=== PATIENT | male | born 1940 | race African-American/Black ===

== ENCOUNTER 2016-11-28 17:33 | Emergency (ER) | payer OTHER ==
[~2016-11-28] VITALS: Ht 175.3 cm; Wt 81.6 kg
--- NOTE | 2016-11-28 18:20 | Emergency Room Report ---
History of Present Illness General Chief Complaint: Generalized Weakness Source: Patient, EMS Present Illness HPI The patient states that he has a long history of syncope. He states that previously this was secondary to dehydration. He states he does now all hydrate very carefully. He presents today because he had been at a meeting and he was standing after the meeting for quite a long time having a conversation and he became lightheaded. He sat down in his car and still continued to be lightheaded. He denies chest pain or shortness of breath. Denies abdominal pain. He denies fever or chills. He did not have loss of consciousness. He has no other complaints. 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 He is on xeralto. He states that he had been on Coumadin until a few months ago and he was changed to xeralto. Allergies: Coded Allergies: No Known Allergies (Unverified , 11/28/16) Patient History Past Medical History: see triage record, HTN, other - syncope, dehydration/low blood pressure. Prostate CA. Hx of PE. Social History: Denies: alcohol use, drug use, smoking Reviewed Nursing Documentation: PMH: Agreed, PSxH: Agreed Nursing Documentation-PMH Past Medical History: No History, Except For Hx Hypertension: Yes Hx Cerebrovascular Accident: Yes Review of Systems All Other Systems: negative except mentioned in HPI Physical Exam Vital Signs Date Time Temp Pulse Resp B/P Pulse Ox O2 Delivery O2 Flow Rate FiO2 11/28/16 17:21 97.3 96 16 94/54 99 Room Air Sp02 EP Interpretation: reviewed, normal General Appearance: no apparent distress, alert, GCS 15, non-toxic Head: normocephalic, atraumatic Eyes: bilateral eye PERRL, bilateral eye normal inspection ENT: hearing grossly normal, normal pharynx, no angioedema, normal voice Neck: full range of motion, supple/symm/no masses Respiratory: chest non-tender, lungs clear, normal breath sounds, speaking full sentences Cardiovascular #1: regular rate, rhythm, no edema Gastrointestinal: normal bowel sounds, non tender, soft, non-distended, no guarding, no rebound Rectal: deferred Musculoskeletal: back normal, gait/station normal, normal range of motion, non- tender Neurologic: alert, oriented x3, responsive, motor strength/tone normal, sensory intact, speech normal Psychiatric: judgement/insight normal, memory normal, mood/affect normal, no suicidal/homicidal ideation Skin: normal color, no rash, warm/dry, well hydrated Medical Decision Making Diagnostic Impression: Primary Impression: Pre-syncope ER Course I suspect the pre-syncope that the patient is presenting with is a nonemergent in etiology. Regarding the history, the patient has no history of structural heart disease or coronary artery disease, no family history of sudden , has no shortness of breath, and the syncope is not exertional. On physical exam , the patient is not hypotensive, has no findings of CHF, and no significant cardiac murmur suggestive of valvular heart disease or cardiac outflow obstruction. The patient reports no history of seizure or head trauma. EKG showed no evidence of concerning findings of QT prolongation, Brugada syndrome or significant ST changes suggestive of acute ischemia, dysrhythmias or significant conduction abnormalities. On laboratory evaluation, blood sugar was normal and the patient is not anemic. The patient was counseled that, though unlikely, the possibility of an emergent cause of syncope may be present and that the patient should return immediately if symptoms persist or worsen. I believe the patient is stable for discharge to followup with her PMD for further workup. Labs Test 11/28/16 18:32 White Blood Count 3.9 K/UL (4.8-10.8) Red Blood Count 4.10 M/UL (4.70-6.10) Hemoglobin 13.0 G/DL (14.2-18.0) Hematocrit 38.9 % (42.0-52.0) Mean Corpuscular Volume 95 FL (80-99) Mean Corpuscular Hemoglobin 31.6 PG (27.0-31.0) Mean Corpuscular Hemoglobin Concent 33.3 G/DL (32.0-36.0) Red Cell Distribution Width 11.3 % (11.6-14.8) Platelet Count 118 K/UL (150-450) Mean Platelet Volume 7.6 FL (6.5-10.1) Neutrophils (%) (Auto) 57.2 % (45.0-75.0) Lymphocytes (%) (Auto) 29.1 % (20.0-45.0) Monocytes (%) (Auto) 11.1 % (1.0-10.0) Eosinophils (%) (Auto) 0.8 % (0.0-3.0) Basophils (%) (Auto) 2.0 % (0.0-2.0) Sodium Level 138 mEQ/L (135-145) Potassium Level 4.4 mEQ/L (3.4-4.9) Chloride Level 100 mEQ/L (98-107) Carbon Dioxide Level 26 mEQ/L (20-30) Anion Gap 12 (5-15) Blood Urea Nitrogen 19 mg/dL (7-23) Creatinine 1.3 mg/dL (0.7-1.2) Estimat Glomerular Filtration Rate mL/min (>60) Glucose Level 92 mg/dL (74-106) Calcium Level 9.2 mg/dL (8.6-10.2) Total Bilirubin 0.6 mg/dL (0.0-1.2) Aspartate Amino Transf (AST/SGOT) 26 U/L (5-40) Alanine Aminotransferase (ALT/SGPT) 21 U/L (3-41) Alkaline Phosphatase 96 U/L (40-129) Total Creatine Kinase 236 U/L (38-174) Creatine Kinase MB 4.3 ng/mL (< 6.7) Creatine Kinase MB Relative Index 1.8 Troponin I < 0.30 ng/mL (<=0.30) Total Protein 7.2 g/dL (6.6-8.7) Albumin 4.2 g/dL (3.5-5.2) Globulin 3.0 g/dL Albumin/Globulin Ratio 1.4 (1.0-2.7) Lipase 14 U/L (< 60) EKG Diagnostic Results Rate: normal Rhythm: NSR ST Segments: other Other Impression Non-specific ST findings. Rhythm Strip Diag. Results EP Interpretation: yes Rate: 60's Rhythm: NSR, no PVC's, no ectopy Last Vital Signs Date Time Temp Pulse Resp B/P Pulse Ox O2 Delivery O2 Flow Rate FiO2 11/28/16 17:21 97.3 96 16 94/54 99 Room Air Disposition: HOME, SELF-CARE Condition: Stable Patient Instructions: Near-Syncope, Mmby-da-Triv YANETH JAMISON D.O. Nov 28, 2016 18:20
[2016-11-28 18:50] LABS: EOSINOPHILS % (AUTO) 0.8 % (0.0-3.0); LYMPHOCYTES % (AUTO) 29.1 % (20.0-45.0); MEAN CORPUSCULAR HEMOGLOBIN 31.6 PG (27.0-31.0); MEAN CORPUSCULAR HGB CONC 33.3 G/DL (32.0-36.0); MEAN CORPUSCULAR VOLUME 95 FL (80-99); MEAN PLATELET VOLUME 7.6 FL (6.5-10.1); MONOCYTES % (AUTO) 11.1 % (1.0-10.0); NEUTROPHILS % (AUTO) 57.2 % (45.0-75.0); PLATELET COUNT 118 K/UL (150-450); RED CELL DISTRIBUTION WIDTH 11.3 % (11.6-14.8); WHITE BLOOD COUNT 3.9 K/UL (4.8-10.8)
[2016-11-28 19:20] LABS: TROPONIN I < 0.30 ng/mL (<=0.30)
[2016-11-28 19:21] LABS: ALANINE AMINOTRANSFERASE 21 U/L (3-41); ALBUMIN/GLOBULIN RATIO 1.4 (1.0-2.7); ANION GAP 12 (5-15); ASPARTATE AMINO TRANSFERASE 26 U/L (5-40); CALCIUM 9.2 mg/dL (8.6-10.2); CARBON DIOXIDE 26 mEQ/L (20-30); CHLORIDE 100 mEQ/L (98-107); CREATININE 1.3 mg/dL (0.7-1.2); HEMOLYSIS 35; LIPASE 14 U/L (< 60); POTASSIUM 4.4 mEQ/L (3.4-4.9); SODIUM 138 mEQ/L (135-145); TOTAL PROTEIN 7.2 g/dL (6.6-8.7)
[2016-11-28 19:30] VITALS: BP 145/80
[2016-11-28 19:31] LABS: CKMB 4.3 ng/mL (< 6.7)
[2016-11-28 20:50] VITALS: BP 144/77
[2016-11-28 20:58] VITALS: BP 144/77
[2016-11-28 20:58] LABS: APPEARANCE,URINE CLEAR; KETONES,URINE NEGATIVE (NEGATIVE); LEUKOCYTE ESTERASE ,URINE NEGATIVE (NEGATIVE); NITRITE,URINE NEGATIVE (NEGATIVE); PH,URINE 7 (4.5-8.0); PROTEIN,URINE NEGATIVE (NEGATIVE); UROBILINOGEN,URINE NORMAL MG/DL (0.0-1.0)
--- NOTE | 2016-12-01 18:19 | Cardiology Report ---
APPROVED REPORT EKG Measurement Heart [id number] Normal sinus rhythm Left axis deviation Abnormal ECG
== END 2016-11-28 20:58 | disposition home or self-care (01) ==
LOC: EDBD 17:33 → EMR 17:47
DX: R55 Syncope and collapse (principal); Z86.711 Personal history of pulmonary embolism; I10 Essential (primary) hypertension; Z86.73 Personal history of transient ischemic attack (TIA), and cerebral infarction without residual deficits; Z85.46 Personal history of malignant neoplasm of prostate
CPT/HCPCS: 36415; 80053; 81003; 82550; 82553; 82962; 83690; 84484; 85025; 93005; 96360

== ENCOUNTER 2018-10-15 23:26 | Emergency (ER) | payer MEDICARE, MEDICAID, OTHER ==
[~2018-10-15] VITALS: Ht 182.9 cm; Wt 83.9 kg
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
[2018-10-15 23:41] VITALS: BP 133/80
[2018-10-15] MEDS ORDERED: Acetaminophen 500mg (ES) tab ORAL ONE (23:45)
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
[2018-10-16] MEDS ORDERED: IBUPROFEN600 MG ORAL (01:07)
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
--- NOTE | 2018-10-16 01:15 | NUR ---
ED Nurse Note: Pt in bed resting. No distress noted. Will continue to monitor.
--- NOTE | 2018-10-16 02:54 | NUR ---
ED Nurse Note: Pt cleared by health care Provider for discharge. DC instructions/prescription was given and explained to pt and verbalized understanding of teachings. All medical deviecs such as ID band removed. Pt is AAO x4, ambulatory with assist from walker given at hospital and left with all personal belongings.
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
[2018-10-16 04:59] VITALS: BP 164/93
--- NOTE | 2018-10-16 05:02 | NUR ---
Spoke with Monserrat at [facility], face sheet, clinicals faxed to [phone] as requested. Patient will be transferred to either [place] or [place] or [place] or [place] or [facility] wherever sh can foind a bed.
[2018-10-16 05:07] LABS: APPEARANCE,URINE CLEAR; BILIRUBIN, URINE NEGATIVE (NEGATIVE); COLOR,URINE PALE YELLOW; GLUCOSE, URINE (UA) NEGATIVE (NEGATIVE); KETONES,URINE NEGATIVE (NEGATIVE); LEUKOCYTE ESTERASE ,URINE NEGATIVE (NEGATIVE); NITRITE,URINE NEGATIVE (NEGATIVE); PH,URINE 7 (4.5-8.0); PROTEIN,URINE NEGATIVE (NEGATIVE); UROBILINOGEN,URINE NORMAL MG/DL (0.0-1.0)
[2018-10-16 05:12] LABS: BASOPHILS % (AUTO) 0.5 % (0.0-2.0); EOSINOPHILS % (AUTO) 0.3 % (0.0-3.0); HEMATOCRIT 40.3 % (42.0-52.0); HEMOGLOBIN 13.6 G/DL (14.2-18.0); LYMPHOCYTES % (AUTO) 9.7 % (20.0-45.0); MEAN CORPUSCULAR VOLUME 89 FL (80-99); MONOCYTES % (AUTO) 5.7 % (1.0-10.0); NEUTROPHILS % (AUTO) 83.8 % (45.0-75.0); PLATELET COUNT 120 K/UL (150-450); RED CELL DISTRIBUTION WIDTH 11.9 % (11.6-14.8); WHITE BLOOD COUNT 7.7 K/UL (4.8-10.8)
[2018-10-16 05:15] LABS: ANION GAP 12 mmol/L (5-15); BLOOD UREA NITROGEN 19 mg/dL (7-18); CALCIUM 9.2 MG/DL (8.5-10.1); CARBON DIOXIDE 26 MMOL/L (21-32); CHLORIDE 103 MMOL/L (98-107); CREATININE 1.1 MG/DL (0.55-1.30); POTASSIUM 4.9 MMOL/L (3.5-5.1); SODIUM 141 MMOL/L (136-145)
[2018-10-16 05:20] LABS: INR 1.1 (0.9-1.1)
--- NOTE | 2018-10-16 05:32 | NUR ---
Patient taken to hip CT(new order).
--- NOTE | 2018-10-16 07:12 | NUR ---
HAND-OFF: Report given to Desirae RUTLEDGE. Endorsed completion of outside transfer once a hospital is accepted by insurance. Pt sleeping and stable.
--- NOTE | 2018-10-16 07:14 | NUR ---
ED Nurse Note: Pt is sleeping on bed comfortably at this time, easily aroused. No sign of acute distress. Vital signs stable. Used urinal at times.
[2018-10-16 07:49] VITALS: BP 154/88
--- NOTE | 2018-10-16 09:47 | NUR ---
ED Nurse Note: Report given to MATY Ledesma at [facility].
[2018-10-16 09:50] VITALS: BP 136/80
[2018-10-16 10:01] VITALS: BP 154/88
== END 2018-10-16 11:26 | disposition short-term general hospital (02) ==
LOC: EDUNIT# 23:26 → EDBD 23:26 → EMR 23:43
DX: S32.402A Unspecified fracture of left acetabulum, initial encounter for closed fracture (principal); S09.90XA Unspecified injury of head, initial encounter; I10 Essential (primary) hypertension; Z86.73 Personal history of transient ischemic attack (TIA), and cerebral infarction without residual deficits; Y04.2XXA Assault by strike against or bumped into by another person, initial encounter; Y92.811 Bus as the place of occurrence of the external cause
CPT/HCPCS: 36415; 70450; 73502; 73700; 80048; 80307; 81001; 85025; 85610; 99284; G0480; 80329